=== PATIENT | male | born 1940 | race Caucasian/White ===

== ENCOUNTER 2020-09-28 07:23 | Emergency (ER) | payer MEDICARE ==
[~2020-09-28] VITALS: Ht 182 cm; Wt 120.0 kg
[~2020-09-28 07:23] MED LIST changes: -MIDAZOLAM 5 MG/5 ML (VERSED) VIAL ONE; -NOREPINEPHRINE 4 MG/250 ML 250 ML IV ONE; -PROPOFOL DRIP (ICU) 100 ML IV ONE; -fentaNYL INJECTION 100 MCG/2 ML AMP ONE
--- NOTE | 2020-09-28 07:23 | NUR ---
0723- PT ARRIVES TO ED. CPR IN PROGRESS. CPR TAKEN OVER BY ED. RT AT HEAD OF BED MANAGING VENTILATION VIA AMBU BAG 0725- 1 MG EPI GIVEN VIA IO 0726- RYTHM CHECK-120 J DEFIB- V FIB. CPR RESUMEDETT TUBE 27 AT THE TEETH. 150 MG AMIODARONE VIA IO. 0727- 18 G R WRIST ESTABLISHED 0728- 1 AMP BICARB VIA IO. RYTHM CHECK- V FIB. 200 J DEFIB. CPR RESUMED 0729- 1 MG EPI VIA R WRIST IV 0732- RYTHM CHECK- V FIB. 200 J DEFIB. CPR RESUMED. 100 MG LIDOCAINE VIA 18 G L WRIST 0734- 1 MG EPI GIVEN VIA R WRIST IV 0735- 1 AMP BICARB GIVEN 20 G L WRIST 0736- RYTHM CHECK- V FIB . 200 J DEFIB. CPR RESUMED. 100 MG LIDO 0739- 1 MG EPI GIVEN VIA R WRIST IV 0740- 1 GM MAG GIVEN VIA R WRIST IV. RYTHM CHECK- V FIB. DEFIB 200 J. CPR RESUMED. 0742- ROSC ( HR 112, 88-92% PULSE OX, 123/86. 18 FR KUMARI PLACED. 0754- LEVO STARTED 0.1 MCG/KG VIA 20 G L WRIST 0754- RYTHM CHECK- PEA. CPR RESSUMED. 0755- 1 MG EPI GIVEN VIA 18 G R WRIST 0757- RYTHM CHECK- PEA. CPR RESSUMED 0758- LIDOCAINE DRIP STATED 1 MG/MIN 0800- PULSE CHECK- ROSC. CENTRAL LINE PLACED- 3 LUMEN R FEMORAL. INFUSIONS TRANSITIONED TO CENTRAL LINE. 0802- 98 HR, 100 % SPO2, 88/53 0803- LEVO TITRATED TO 0.2 MCG/KG 0812- LEVO TITRATED TO 1.0 MCG/KG 0814- RYTHM CHECK- ASYSTOLE. CPR RESSUMED. 1 MG EPI IV. 0816- 2.5 MG VERSED, 50 MCG FENTANYL GIVEN VIA CENTRAL LINE. 0817- RYTHM CHECK- PEA- CPR RESSUMED. 0819- 1 MG EPI GIVEN VIA CENTRAL LINE. 126/28. HR 108 WITH CPR, 67% SPO2 WITH AMBU BAG 0820- PULSE CHECK- PEA. CPR RESSUMED. FAMILY TO ROOM 0821- 1 MG EPI GIVEN VIA CENTRAL LINE 0823- ROSC 0826- EPI 0.1 MG/KG/MIN STARTED VIA CENTRAL LINE. 0828- LEVO TITRATED TO 1.5 MCG/KG 0829- LIDO 2 MG/MIN 0832- ETT BACKED OUT 2 CM TO 25 CM AT THE TEETH 0833- LIDO TITRATED TO 3 MCG/MIN 0834- LIDO TITRATED TO 4 MG/MIN 0841- CRITICAL VALUE REPORTED- LACTATE 13 FROM LAB 0842- 0.3 MG/KG EPI DRIP TITRATED 0847- LR 1000 ML STARTED TO R WRIST 0851- LEVO TITRATED TO 3 MG. 0900- FAMILY AT PT BEDSIDE
--- NOTE | 2020-09-28 07:27 | NUR ---
PREHOSPITAL REPORT: 0649- PT CALLED 911 REPORTING SOA, DIZZINESS, AND SWEATING. WHILE ON THE CALL DISBATCH HEARS A CRASH AND PT STOPS RESPONDING/TALKING ON THE PHONE. 0700- FINISH MACHINE TENDER STARTS ON SCENE AND FINDS PT UNRESPONSIVE WITH NO PULSE STARTS CPR. EMS INTUBATES PT WITH 8.0 ETT TUBE ON SCENE, 27 AT THE TEETH, 18 FR OG, IO TO R LOWER LEG. EMS REPORTS GIVING 2 AMP EPI, 300 ML AMIODARONE, AND DEFIB SHOCK 300 J X 2 IN ROUTE. PT HAS 1 L NS INFUSING IN ROUTE.
[2020-09-28] MEDS ORDERED: LIDOCAINE BOLUS 100 MG/5 ML (IMS) SYR INJ ONE (08:10)
[2020-09-28] MEDS ORDERED: LIDOCAINE DRIP PRE-MIX 2 GM/500 ML BAG IV ONE (08:10)
[2020-09-28] MEDS ORDERED: SODIUM BICARB 8.4% 10 MEQ/10 ML (PEDS) SYR INJ ONE (08:10)
[2020-09-28] MEDS ORDERED: EPINEPHrine INJECTION 1 MG/ML AMP IJ ONE (08:10)
[2020-09-28] MEDS ORDERED: EPINEPHrine 0.1 MG/ML 10 ML (HOSPIRA) SYR IJ ONE (08:10)
[2020-09-28] MEDS ORDERED: AMIODARONE (OMNICELL DRIP KIT) 150 MG/3 ML IV ONE (08:10)
[2020-09-28] MEDS ORDERED: SODIUM BICARB 8.4% 50 MEQ/50 ML (ABBOTT) SYR INJ ONE (08:10)
[2020-09-28] MEDS ORDERED: MAGNESIUM SULF 5 GM/10 ML VIAL IV ONE (08:10)
[2020-09-28 08:22] LABS: BASOPHILS # (AUTO) 0.1 10^3/uL (0.0-0.1); BASOPHILS % (AUTO) 0 % (0-10); EOSINOPHILS # (AUTO) 0.5 10^3/uL (0.0-0.3); EOSINOPHILS % (AUTO) 2 % (0-10); HEMATOCRIT 44 % (40-54); HEMOGLOBIN 13.5 g/dL (13.3-17.7); LYMPHOCYTES # (AUTO) 7.4 10^3/uL (1.0-4.0); LYMPHOCYTES % (AUTO) 29 % (12-44); MEAN CORPUSCULAR HEMOGLOBIN 32 pg (25-34); MEAN CORPUSCULAR HGB CONC 31 g/dL (32-36); MEAN CORPUSCULAR VOLUME 105 fL (80-99); MEAN PLATELET VOLUME 10.9 fL (9.0-12.2); MONOCYTES # (AUTO) 1.2 10^3/uL (0.0-1.0); MONOCYTES % (AUTO) 5 % (0-12); NEUTROPHILS # (AUTO) 14.7 10^3/uL (1.8-7.8); NEUTROPHILS % (AUTO) 59 % (42-75); PLATELET COUNT 144 10^3/uL (130-400)
[2020-09-28 08:24] LABS: BILIRUBIN,URINE NEGATIVE (NEGATIVE); CLARITY,URINE SL CLOUDY; COLOR,URINE YELLOW; GLUCOSE, URINE (UA) NEGATIVE (NEGATIVE); KETONES,URINE NEGATIVE (NEGATIVE); LEUKOCYTE ESTERASE ,URINE NEGATIVE (NEGATIVE); NITRITE,URINE NEGATIVE (NEGATIVE); PROTEIN,URINE 3+ (NEGATIVE)
[2020-09-28] MEDS ORDERED: EPINEPHrine 1 MG INJECTION 4 MG in NS (IVPB) 246 ML IV SCH (08:30)
[2020-09-28 08:32] LABS: ALBUMIN 3.1 GM/DL (3.2-4.5); POTASSIUM 3.6 MMOL/L (3.6-5.0)
[2020-09-28 08:33] LABS: ANISOCYTOSIS SLIGHT; BAND NEUTROPHILS 7 %; CALCIUM 8.3 MG/DL (8.5-10.1); EOSINOPHILS % (MANUAL) 3 %; LYMPHOCYTES % (MANUAL) 26 %; MONOCYTES % (MANUAL) 5 %; MYELOCYTES % 1 %; NEUTROPHILS % (MANUAL) 58 %
[2020-09-28 08:34] LABS: TOTAL PROTEIN 5.6 GM/DL (6.4-8.2)
[2020-09-28 08:36] LABS: BACTERIA,URINE NEGATIVE /HPF
[2020-09-28 08:36] LABS: BILIRUBIN,TOTAL 0.4 MG/DL (0.1-1.0)
[2020-09-28 08:37] LABS: URINE OTHER LG SPERM /HPF
[2020-09-28 08:38] LABS: CREATININE SERUM 1.94 MG/DL (0.60-1.30)
[2020-09-28 08:41] LABS: MAGNESIUM 2.8 MG/DL (1.6-2.4)
[2020-09-28] MEDS ORDERED: NOREPINEPHRINE 4 MG/250 ML 250 ML IV ONE ×2 (08:41→08:57)
[2020-09-28] MEDS ORDERED: LACTATED RINGERS 1,000 ML IV ONE (08:52)
[2020-09-28 08:53] LABS: FIBRIN DEGRADATION PRODUCTS > 20.00 UG/ML (0.00-0.49)
[2020-09-28 08:54] LABS: PROTHROMBIN TIME PATIENT 16.7 SEC (12.2-14.7)
[2020-09-28 08:55] LABS: INR 1.3 (0.8-1.4); PARTIAL THROMBOPLASTIN TIME 42 SEC (24-35)
--- NOTE | 2020-09-28 09:05 | NUR ---
DR. WONG AT PT BEDSIDE CONSULTING WITH HUGHES AND PT FAMILY 0910- PER PT FAMILY AND HUGHES. DRIPS TO BE TURNED OFF. FAMILY REPORTS WANTS TO REMOVE CARE. 0915- 50 MCG FENTANYL AND 2.5 VERSED GIVEN 0917- RT EXTUBATED PT AT THIS TIME PER FAMILY REQUEST 0922- NO PALPABLE PULSE. NO REPSIRATORY EFFORT. TIME OF CALLED BY HUGHES AT THIS TIME.
--- NOTE | 2020-09-28 09:05 | Diagnostic Imaging Report ---
INDICATION: CODE BLUE. EXAMINATION: Chest from 09/28/2020. COMPARISON: 09/12/2016 FINDINGS: 2 views of the chest The heart is prominent, pulmonary vascular is congested with increased interstitial and airspace opacities throughout both lungs. There are no effusions. No pneumothorax. Feeding tube courses beneath beneath diaphragm. ET tube tip approximately a centimeter from the hannah. ] IMPRESSION: 1. Findings of pulmonary edema with infiltrates not excluded. 2. Multiple left lateral rib fractures not mentioned above. No pneumothorax is seen. Dictated by: Dictated on workstation # [id number]
--- NOTE | 2020-09-28 09:38 | ED CPR ---
HPI-CPR General Chief Complaint: Code Blue Stated Complaint: CODE BLUE Nursing Triage Note: PT PRESENTS TO ED VIA EMS FROM HOME WITH UNWHITNESSED CARDIAC ARREST. CPR STARTED ON SCENE AT 0700 BY DEPT. EMS INTUBATES PT ON SCENE AND CPR BEING PERFORMED BY EMS UPON PT ARRIVAL. CPR TAKEN OVER BY ED. Sepsis Screen: No Definite Risk Source of Information: Patient, EMS, Family Exam Limitations: Physical Impairments History of Present Illness Date Seen by Provider: Sep 28, 2020 Time Seen by Provider: 07:25 Initial Comments Here by EMS with report of cardiac arrest with CPR in progress in route to the ER. Patient apparently called for EMS at 0649 and while he was on the phone with dispatch, they heard a crash and he apparently collapsed. He was unresponsive at that time. Sheriff valerio arrived at 0700 and initiated CPR as he had no pulse and was unresponsive. EMS arrived shortly after to find patient still unresponsive and without pulse. They did initiate ACLS protocol. Patient did have an intraosseous device placed to the right leg and was intubated with 8.0 ET tube at 25 cm and did have 18 Chinese OG tube placed. During the resuscitation attempt, patient was defibrillated 2 for ventricular fibrillation and did receive epinephrine 1 mg 2 doses and amiodarone 300 mg. He also had 1 L of normal saline infusing via intraosseous device. Arrived with O2 sats in the 90s with CPR and no pulse and ventricular fibrillation noted on monitor. Family arrived later to report that he had been doing okay recently although he does have significant underlying illness including cardiac disease with stent placement, diabetes and COPD. He still smokes heavily. No report of recent illness and no contact with [facility]. Initial Complaints: Collapsed, Found Unresponsive Witnessed Arrest: No Paramedics Initial Findings: V-FIB Pre Hospital Treatment: Bag Valve Mask, CPR/Thumper, Defibrillation, Intubation, Oxygen, IV Fluids, Amiodorone (mg) (300), Epinephrine (mg) (2) Allergies and Home Medications Allergies Coded Allergies: No Known Drug Allergies (Unverified , 09/10/16) Home Medications Amlodipine Besylate 5 Mg Tablet, 5 MG PO BID, (Reported) Aspirin 81 Mg Tablet.dr, 81 MG PO DAILY Prescribed by: HUMPHREY REGALADO on 09/13/16 0903 Clobetasol Propionate 59 Ml Lotion, TP DAILY PRN PRN for RASH, (Reported) USES WITH CETAPHIL LOTION Emollient Combination No.40 226 Gm Lotion, TP DAILY PRN PRN for RASH, (Reported) USES WITH CLOBETASOL LOTION Glimepiride 2 Mg Tablet, 1 MG PO BID, (Reported) TAKES 1/2 (2MG) TABLET Lisinopril 20 Mg Tablet, 20 MG PO DAILY Prescribed by: HUMPHREY REGALADO on 09/13/16851 Metformin HCl 1,000 Mg Tablet, 1,000 MG PO BID, (Reported) Metoprolol Succinate 50 Mg Tab.er.24h, 50 MG PO DAILY Prescribed by: HUMPHREY REGALADO on 09/13/16851 Multivit-Min/FA/Lycopene/Lut 1 Each Tablet, 1 TAB PO DAILY, (Reported) Phenylephrine HCl 15 Ml Naspr, 1 SPRAY NS DAILY PRN PRN for CONGESTION, (Reported) Prednisone 10 Mg Tab, 30 MG PO DAILY Prescribed by: HUMPHREY REGALADO on 09/13/16851 Torsemide 100 Mg Tablet, 25 MG PO DAILY PRN for SWELLING, (Reported) TAKES 1/4 (100MG) TABLET Triamcinolone Acet 15 Gm Cr, TP DAILY PRN PRN for RASH, (Reported) 0.5% Patient Home Medication List Home Medication List Reviewed: Yes Review of Systems Review of Systems Constitutional: see HPI Other Comments Unable to complete review of systems due to cardiac arrest Past Ghlqnoa-Wewylx-Armihs Hx Past Med/Social Hx: Reviewed Nursing Past Med/Soc Hx Patient Social History Alcohol Use: Denies Use Recreational Drug Use: No Smoking Status: Current Everyday Smoker Type Used: Cigarettes Recent Foreign Travel: No Contact w/Someone Who Travel: No Recent Infectious Disease Expo: No Recent Hopitalizations: No Immunizations Up To Date Date of Pneumonia Vaccine: Sep 10, 2015 Seasonal Allergies Seasonal Allergies: No Past Medical History Surgeries: No Coronary Stent, Tonsillectomy Respiratory: Yes COPD Cardiac: No Coronary Artery Disease, Hypertension Neurological: No Gastrointestinal: No Musculoskeletal: No Endocrine: Yes Diabetes, Non-Insulin dep Cancer: No Psychosocial: No Integumentary: No Family Medical History Reviewed Nursing Family Hx No Pertinent Family Hx Physical Exam Vital Signs Vital Signs - First Documented 09/28/20 07:23 Temp 35.5 Capillary Refill : Greater Than 3 Seconds Height, Weight, BMI Height: 5'8.00" Weight: 197lbs. 5.0oz. [id number]; 36.00 BMI Method:Stated General Appearance: Other (unresponsive with CPR in progress) HEENT: Other (pupils fixed and dilated) Neck: Normal Inspection, Supple Respiratory: Crackles (bilaterally with bagging), Other (agonal respirations occasionally) Cardiovascular: Other (ventricular fibrillation on monitor initially. Both tachycardia and bradycardia rhythms noted throughout resuscitation.) Gastrointestinal: Non Tender, Soft Neurologic/Psychiatric: Other (unresponsive with CPR in progress) Skin: Cool, Pallor Focused Exam Lactate Level 09/28/20 08:00: Lactic Acid Level > 13.35*H Lactic Acid Level Laboratory Tests Test 09/28/20 08:00 Lactic Acid Level > 13.35 MMOL/L (0.50-2.00) *H Procedures/Interventions Lumen: triple Central Line Procedure: betadine prep Position: femoral (R) Complications: none Post Position: sutured, good blood return Placed via ultrasound guidance times one stick without complications using Seldinger technique.. Flash and return and flush as well. Sutured in place and covered with sterile dressing. Placed under emergent conditions. Tube Size: 8.00 Progress/Results/Core Measures Results/Orders Lab Results Laboratory Tests Test 09/28/20 08:00 09/28/20 08:12 09/28/20 08:40 Range/Units White Blood Count 25.0 H 4.3-11.0 10^3/uL Red Blood Count 4.18 L 4.30-5.52 10^6/uL Hemoglobin 13.5 13.3-17.7 g/dL Hematocrit 44 40-54 % Mean Corpuscular Volume 105 H 80-99 fL Mean Corpuscular Hemoglobin 32 25-34 pg Mean Corpuscular Hemoglobin Concent 31 L 32-36 g/dL Red Cell Distribution Width 13.5 10.0-14.5 % Platelet Count 144 130-400 10^3/uL Mean Platelet Volume 10.9 9.0-12.2 fL Immature Granulocyte % (Auto) 4 % Neutrophils (%) (Auto) 59 42-75 % Lymphocytes (%) (Auto) 29 12-44 % Monocytes (%) (Auto) 5 0-12 % Eosinophils (%) (Auto) 2 0-10 % Basophils (%) (Auto) 0 0-10 % Neutrophils # (Auto) 14.7 H 1.8-7.8 10^3/uL Lymphocytes # (Auto) 7.4 H 1.0-4.0 10^3/uL Monocytes # (Auto) 1.2 H 0.0-1.0 10^3/uL Eosinophils # (Auto) 0.5 H 0.0-0.3 10^3/uL Basophils # (Auto) 0.1 0.0-0.1 10^3/uL Immature Granulocyte # (Auto) 1.1 H 0.0-0.1 10^3/uL Neutrophils % (Manual) 58 % Lymphocytes % (Manual) 26 % Monocytes % (Manual) 5 % Eosinophils % (Manual) 3 % Myelocytes % 1 % Band Neutrophils 7 % Anisocytosis SLIGHT Macrocytosis MODERATE Prothrombin Time 16.7 H 12.2-14.7 SEC INR Comment 1.3 0.8-1.4 Activated Partial Thromboplast Time 42 H 24-35 SEC D-Dimer > 20.00 *H 0.00-0.49 UG/ML Sodium Level 143 135-145 MMOL/L Potassium Level 3.6 3.6-5.0 MMOL/L Chloride Level 98 98-107 MMOL/L Carbon Dioxide Level 17 L 21-32 MMOL/L Anion Gap 28 H 5-14 MMOL/L Blood Urea Nitrogen 23 H 7-18 MG/DL Creatinine 1.94 H 0.60-1.30 MG/DL Estimat Glomerular Filtration Rate 34 BUN/Creatinine Ratio 12 Glucose Level 437 *H 70-105 MG/DL Lactic Acid Level > 13.35 *H 0.50-2.00 MMOL/L Calcium Level 8.3 L 8.5-10.1 MG/DL Corrected Calcium 9.0 8.5-10.1 MG/DL Magnesium Level 2.8 H 1.6-2.4 MG/DL Total Bilirubin 0.4 0.1-1.0 MG/DL Aspartate Amino Transf (AST/SGOT) 142 H 5-34 U/L Alanine Aminotransferase (ALT/SGPT) 105 H 0-55 U/L Alkaline Phosphatase 82 40-136 U/L Myoglobin 1851.6 H 10.0-92.0 NG/ML Troponin I 0.423 *H <0.028 NG/ML C-Reactive Protein High Sensitivity 0.60 H 0.00-0.50 MG/DL Total Protein 5.6 L 6.4-8.2 GM/DL Albumin 3.1 L 3.2-4.5 GM/DL Urine Color YELLOW Urine Clarity SL CLOUDY Urine pH 6.0 5-9 Urine Specific [place] 1.025 H 1.016-1.022 Urine Protein 3+ H NEGATIVE Urine Glucose (UA) NEGATIVE NEGATIVE Urine Ketones NEGATIVE NEGATIVE Urine Nitrite NEGATIVE NEGATIVE Urine Bilirubin NEGATIVE NEGATIVE Urine Urobilinogen 0.2 < = 1.0 MG/DL Urine Leukocyte Esterase NEGATIVE NEGATIVE Urine RBC (Auto) 1+ H NEGATIVE Urine RBC 2-5 H /HPF Urine WBC 2-5 /HPF Urine Squamous Epithelial Cells NONE /HPF Urine Crystals NONE /LPF Urine Bacteria NEGATIVE /HPF Urine Casts NONE /LPF Urine Mucus NEGATIVE /LPF Urine Other LG SPERM H /HPF Urine Culture Indicated NO Coronavirus 2019 ([facility]UNDREA) Negative Negative My Orders Orders - LEIGH ANN HENRY MD Covid 19 Inhouse Test (09/28/20 08:10) Arterial Blood Gas (09/28/20 08:10) Cbc With Automated Diff (09/28/20 08:10) Comprehensive Metabolic Panel (09/28/20 08:10) Hs C Reactive Protein (09/28/20 08:10) Fibrin Degradation Products (09/28/20 08:10) Lactic Acid Analyzer (09/28/20 08:10) Magnesium (09/28/20 08:10) Protime With Inr (09/28/20 08:10) Partial Thromboplastin Time (09/28/20 08:10) Troponin I (09/28/20 08:10) Ua Culture If Indicated (09/28/20 08:10) Myoglobin Serum (09/28/20 08:10) Ed Iv/Invasive Line Start (09/28/20 08:10) Ekg Tracing (09/28/20 08:10) Catheter(Urinary) Insert & Ass 03,15 (09/28/20 08:10) Ng Tube Insert & Assessment (09/28/20 08:10) O2 (09/28/20 08:10) Monitor-Rhythm Ecg Trace Only (09/28/20 08:10) Chest 1 View, Ap/Pa Only (09/28/20 08:10) Ns (Ivpb) (Sodium C... W/Epinephrine 1 (09/28/20 08:30) Manual Differential (09/28/20 08:00) Norepinephrine 4 Mg/250 Ml (Norepinephri (09/28/20 08:41) Lactated Ringers (Lr 1000 Ml Iv Solution (09/28/20 08:52) Norepinephrine 4 Mg/250 Ml (Norepinephri (09/28/20 08:57) Vital Signs/I&O 09/28/20 07:23 Temp 35.5 B/P (MAP) Progress Progress Note : Progress Note Seen and evaluated on arrival by EMS. Resuscitation continued that is in progress by EMS. Patient noted to be in ventricular fibrillation on arrival. ET tube evaluated and bilateral breath sounds noted. Epinephrine 1 mg IV given followed by defibrillation at 120 J. Amiodarone 150 mg IV given to complete amiodarone dosing. 0730: Bicarbonate 1 amp IV given and repeat defibrillation at 200 J with 1 mg of epinephrine following and IV established. 0742: Defibrillation and epinephrine continued. Lidocaine 100 mg IV 2 doses given and magnesium 1 g IV given. Patient did have 2 more episodes of defibrillation and return of spontaneous circulation noted at 0742. Betancourt catheter ordered. 0754: Levophed has been initiated. Pulse was lost. Epinephrine 1 mg IV given 0757: Rhythm check shows PEA with underlying sinus rhythm and CPR continued. 0800 lidocaine drip initiated and Levophed running. Return of circulation noted. Central line placed to the right femoral vein via ultrasound guidance. Blood pressure 88/53 with O2 sat 100% and heart rate of 98 with respirations being via bagging. 0816: Levophed has been increased to 1 mcg/kg/m. Asystole noted and epinephrine 1 mg IV initiated and CPR in progress. 0823: Patient received 2 more milligrams of epinephrine IV during evaluation and we have return of spontaneous circulation. I have discussed with the family regarding the critical nature of the patient and family has been brought to the room to do CPR and return of circulation. We will continue efforts currently and patient's son is calling other family members. 0829: Epinephrine has been increased to 0.1 mcg/kg/m and Levophed has increased to 1.5 mcg/kg/m. Lidocaine increased to 2 mg/m. 0832 ch est x-ray complete and ET tube at hannah and backed up 2 cm to 25 cm at the teeth. 0851: We've increased the epinephrine drip as well as the lidocaine drip and the Levophed drip to 4 mg/m for the lidocaine, 3 mcg/kg/m for the Levophed and 0.5 mcg/m for the epinephrine. I have called for consult with Dr. Sanchez to come to the emergency department and evaluate as well. 0900: I have discussed with the family regarding current situation and significant concerns for mortality or significant morbidity related to prolonged resuscitation and patient's underlying condition. They state that he would not want this and are considering withdrawal of care. Patient may have had DO NOT RESUSCITATE although paperwork not available. 0905: Dr. Sanchez at bedside after report by me. We discussed at length with the family regarding prognosis which is poor at best given that we are at max dose on all drips and blood pressure is tenuous at best and O2 saturations were only in the 70s despite vent adjustments up to 20 on right, 100% FiO2, PEEP of 12 and tidal volume of 450. We reviewed all of the current therapies. After discussion with the family, family elected to cease resuscitation efforts and withdrawal care which both Dr. Sanchez and I agree are very reasonable and the current situation. 0910: Patient did receive Versed 2.5 mg IV and fentanyl 50 g IV for comfort and drips are off. 0917: Patient extubated with family at bedside. 0922: Time of with 0 respiratory effort and asystole on monitor. 1020: I did discuss the case with the service secretary Dr. GUARDADO. We will have home send the certificate to his primary care provider but Dr. Guardado could do that as service secretary if his primary care provider is unable. 1035: I have talked to Dr. Villalba, on-call physician for Dr. marily marino, patient's primary care doctor. We will fax a copy of the chart to his office to assist with certificate signing. Initial ECG Impression Date: Sep 28, 2020 Initial ECG Impression Time: 08:41 Initial ECG Rate: 125 Initial ECG Rhythm: A Fib/Flutter Comment Atrial fibrillation with ventricular tachycardia intermittently. No evidence of ST elevation ME. Change from previous of 10 September 2016. Interpreted by me. Diagnostic Imaging Diagonstic Imaging: Xray Plain Films/CT/US/NM/MRI: chest Comments [facility]. [place], [place] NAME: BRIT KELSEY [facility] REC#: [id number] PT STATUS: REG ER : 1940 PHYSICIAN: LEIGH ANN HENRY MD ADMIT DATE: 09/28/20/ER Draft Date of Exam:09/28/20 CHEST 1 VIEW, AP/PA ONLY INDICATION: CODE BLUE. EXAMINATION: Chest from 09/28/2020. COMPARISON: 09/12/2016 FINDINGS: 2 views of the chest The heart is prominent, pulmonary vascular is congested with increased interstitial and airspace opacities throughout both lungs. There are no effusions. No pneumothorax. Feeding tube courses beneath beneath diaphragm. ET tube tip approximately a centimeter from the hannah. ] IMPRESSION: 1. Findings of pulmonary edema with infiltrates not excluded. 2. Multiple left lateral rib fractures not mentioned above. No pneumothorax is seen. Dictated on workstation # [id number] Dict: 09/28/20 0851 Trans: 09/28/20 0904 [facility] [id number] Interpreted by: JESSICA ESPINOSA MD Electronically signed by: Critical Care Note Critical Care Start Time: 07:25 Stop Time: 09:22 Total Time (minutes) 60 Date of : Sep 28, 2020 Time of : 09:22 Departure Impression Primary Impression: Cardiac arrest Additional Impressions: Bilateral pulmonary infiltrates on chest x-ray Hyperglycemia Respiratory failure Qualified Codes: J96.01 - Acute respiratory failure with hypoxia Disposition: 20 Condition: Departure-Patient Inst. Referrals: CM DUARTE MD (PCP/Family) Primary Care Physician Copy Copies To 1: MUSHTAQ GUARDADO TIMOTHY D MD Sep 28, 2020 09:38
--- NOTE | 2020-09-28 11:08 | Pulmonary Consultation ---
History of Present Illness History of Present Illness Date Seen by Provider: Sep 28, 2020 Time Seen by Provider: 09:00 Date of Admission History of Present Illness 79yo presented to ED via EMS in unwitnessed cardiac arrest. CPR was started at the scene. EMS intubated upon arrival. Pt called 911 at 0649 and collapsed and became unresponsive while on the phone. ACLS was started upon EMS arrival. Pt was defibrillated multiple times by ems and ED. Pt is currently on epi gtt, levophed, and neosynephrin. Dr. Velez called me to bedside. Family is also at bedside. 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 Dr. Velez and I both agree further care will be futile. Family states pt would not want all of this aggressive tx. Allergies and Home Medications Allergies Coded Allergies: No Known Drug Allergies (Unverified , 09/10/16) Home Medications Amlodipine Besylate 5 Mg Tablet, 5 MG PO BID, (Reported) Aspirin 81 Mg Tablet.dr, 81 MG PO DAILY Prescribed by: HUMPHREY REGALADO on 09/13/16902 Clobetasol Propionate 59 Ml Lotion, TP DAILY PRN PRN for RASH, (Reported) USES WITH CETAPHIL LOTION Emollient Combination No.40 226 Gm Lotion, TP DAILY PRN PRN for RASH, (Reported) USES WITH CLOBETASOL LOTION Glimepiride 2 Mg Tablet, 1 MG PO BID, (Reported) TAKES 1/2 (2MG) TABLET Lisinopril 20 Mg Tablet, 20 MG PO DAILY Prescribed by: HUMPHREY REGALADO on 09/13/16851 Metformin HCl 1,000 Mg Tablet, 1,000 MG PO BID, (Reported) Metoprolol Succinate 50 Mg Tab.er.24h, 50 MG PO DAILY Prescribed by: HUMPHREY REGALADO on 09/13/16851 Multivit-Min/FA/Lycopene/Lut 1 Each Tablet, 1 TAB PO DAILY, (Reported) Phenylephrine HCl 15 Ml Naspr, 1 SPRAY NS DAILY PRN PRN for CONGESTION, (R eported) Prednisone 10 Mg Tab, 30 MG PO DAILY Prescribed by: HUMPHREY REGALADO on 09/13/16851 Torsemide 100 Mg Tablet, 25 MG PO DAILY PRN for SWELLING, (Reported) TAKES 1/4 (100MG) TABLET Triamcinolone Acet 15 Gm Cr, TP DAILY PRN PRN for RASH, (Reported) 0.5% Past Njolibm-Zbgifa-Mstsiz Hx Past Med/Social Hx: Reviewed Nursing Past Med/Soc Hx Patient Social History Alcohol Use: Denies Use Recreational Drug Use: No Smoking Status: Current Everyday Smoker Type Used: Cigarettes Recent Foreign Travel: No Contact w/Someone Who Travel: No Recent Infectious Disease Expo: No Recent Hopitalizations: No Immunizations Up To Date Date of Pneumonia Vaccine: Sep 10, 2015 Seasonal Allergies Seasonal Allergies: No Past Medical History Surgeries: No Coronary Stent, Tonsillectomy Respiratory: Yes COPD Cardiac: No Coronary Artery Disease, Hypertension Neurological: No Gastrointestinal: No Musculoskeletal: No Endocrine: Yes Diabetes, Non-Insulin dep Cancer: No Psychosocial: No Integumentary: No Family Medical History Reviewed Nursing Family Hx No Pertinent Family Hx Review of Systems Time Seen by Provider: 11:10 Sepsis Event Evaluation Height, Weight, BMI Height: 5'8.00" Weight: 197lbs. 5.0oz. 89.475783ax; 36.00 BMI Method:Stated Exam Exam Vital Signs Date Time Temp Pulse Resp B/P (MAP) Pulse Ox O2 Delivery O2 Flow Rate FiO2 09/28/20 07:23 35.5 Height & Weight Height: 5'8.00" Weight: 197lbs. 5.0oz. 89.076936ai; 36.00 BMI Method:Stated General Appearance: Other (unresponsive with CPR in progress) HEENT: Other (pupils fixed and dilated) Neck: Normal Inspection, Supple Respiratory: Crackles (bilaterally with bagging), Other (agonal respirations occasionally) Cardiovascular: No Edema, No Gallop, Other (ventricular fibrillation on monitor initially. 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 All questions answered. CRISTIAN WONG DO Sep 28, 2020 11:08
[2020-09-28 13:35] VITALS: BP 0/0
== END 2020-09-28 13:35 | disposition expired ==
LOC: EDUNIT# 08:08 → ER 08:09
DX: I46.9 Cardiac arrest, cause unspecified (principal); R91.8 Other nonspecific abnormal finding of lung field; J96.90 Respiratory failure, unspecified, unspecified whether with hypoxia or hypercapnia; E11.65 Type 2 diabetes mellitus with hyperglycemia; I10 Essential (primary) hypertension; I49.01 Ventricular fibrillation; I25.10 Atherosclerotic heart disease of native coronary artery without angina pectoris; Z95.810 Presence of automatic (implantable) cardiac defibrillator; Z20.828 Contact with and (suspected) exposure to other viral communicable diseases; Z95.5 Presence of coronary angioplasty implant and graft; Z79.84 Long term (current) use of oral hypoglycemic drugs; Z79.82 Long term (current) use of aspirin; Z79.52 Long term (current) use of systemic steroids
CPT/HCPCS: 31500; 36680; 51702; 71045; 80053; 81000; 83605; 83735; 83874; 84484; 85007; 85027; 85379; 85610; 85730; 86141; 93041; 99285; U0002; 36415; 87635

== ENCOUNTER → 2020-09-28 | Emergency (ER) | payer MEDICARE ==
[~2020-09-28] MED LIST: AMLO-250 PO; ASPI-586 PO; CARV12.53 PO; CLOB59LO TP; EMOL226L TP; GLIM2TAB4 PO; LISI-552 PO; MELO15TA39 PO; METF-399 PO; METO50TA7 PO; MIDAZOLAM 5 MG/5 ML (VERSED) VIAL ONE; MULT-1029 PO; NOREPINEPHRINE 4 MG/250 ML 250 ML IV ONE; PHEN15SP NS; PRD10T PO; PROPOFOL DRIP (ICU) 100 ML IV ONE; TORS100T4 PO; TR025C15 TP; fentaNYL INJECTION 100 MCG/2 ML AMP ONE
[2020-09-28 08:20] LABS: ABG BASE EXCESS -12.8 MMOL/L (-2.5-2.5); ABG OXYGEN SATURATION 75 % (94-100); ABG PCO2 59 MMHG (35-45); ABG PO2 65 MMHG (79-93); ABG TCO2 18.2 MMOL/L (21.0-31.0)
[2020-09-28 08:38] LABS: ABG PH 7.05 (7.37-7.43); ALLENS TEST YES-POS; INSPIRED O2 100; PATIENT TEMP 35.5; VENTILATOR YES
== END ==
LOC: EDBD 07:24 → MERGE 07:24 → ER 07:24
DX: R23.0 Cyanosis (principal)
CPT/HCPCS: 82805